=== PATIENT | male | born 1990 | race Caucasian/White ===

== ENCOUNTER 2016-12-19 00:44 | Emergency (ER) | payer OTHER ==
[~2016-12-19 00:44] MED LIST: ALBUTEROL 0.5ML INH; ALBUTEROL17 GM INH; BACITRACIN15 GM TP; BACTRIM DS TABL1 TA1 PO; CATAFLAM50 MG PO; CIPRO PO; KEFLEX250 M1 PO; KETOPROFEN PO; MEDROL PO; MORGIDOX100 MG PO; NAPROXEN PO; SEROQUEL PO; TYLOX 5/500 CAP1 CAP PO; ULTRAM PO
== END 2016-12-19 05:46 | disposition home or self-care (01) ==
LOC: CED 00:44
DX: F11.129 Opioid abuse with intoxication, unspecified (principal); J45.909 Unspecified asthma, uncomplicated; Z87.442 Personal history of urinary calculi; F17.200 Nicotine dependence, unspecified, uncomplicated
CPT/HCPCS: 99282